=== PATIENT | female | born 1975 | race American Indian/Alaskan Native ===

== ENCOUNTER 2020-11-16 14:55 | Outpatient (REF) | payer MEDICAID, SELFPAY ==
[2020-11-16 16:30] LABS: Hematocrit 42.2 % (37-47); Hemoglobin 14.3 g/dl (12.0-16.0); Mean Corpuscular HGB Conc 33.9 g/dl (31.0-35.0); Mean Corpuscular Volume 91.3 fL (80-98); Mean Platelet Volume 11.2 fL (9.4-12.3); Platelet Count 201 X10*3/uL (160-400); Red Blood Count 4.62 X10*6/uL (4.20-5.50); Red Cell Distribution Width 11.3 % (11.0-16.0)
[2020-11-16 16:46] LABS: Estimated Average Glucose 246 mg/dL; Hemoglobin A1c % 10.2 %
[2020-11-16 16:47] LABS: Alanine Aminotransferase 32 U/L (0-31); Albumin Level 4.5 g/dL (3.5-5.0); Alkaline Phosphatase 70 U/L (39-117); Anion Gap 14 (12-20); Aspartate Amino Transferase 13 U/L (5-31); Bilirubin Total 0.8 mg/dL (0.0-1.0); Blood Urea Nitrogen 8 mg/dL (9-16); Carbon Dioxide 25 mmol/L (22-29); Chloride 104 mmol/L (96-108); Cholesterol 137 mg/dL; Estimated Glomerular Filt Rate > 60; Glucose Random 197 mg/dL (60-115); HDL Cholesterol 39 mg/dL; LDL Cholesterol Calculated 74 mg/dl; Potassium 3.8 mmol/L (3.3-5.1); Sodium 139 mmol/L (135-145); Total Protein 7.2 g/dL (6.5-8.0); Triglycerides 121 mg/dL
[2020-11-16 16:52] LABS: Creatinine Urine 104.02 mg/dL; Microalbum/Creatinine Ratio Ur 6.7 ug/mg cr
== END 2020-11-16 14:56 | disposition home or self-care (01) ==
LOC: HO.HMGCLDS 14:55
PROVIDERS: PCP Internal Medicine; Visit Provider Internal Medicine
DX: Z00.00 Encounter for general adult medical examination without abnormal findings (principal); E11.9 Type 2 diabetes mellitus without complications; F32.9 Major depressive disorder, single episode, unspecified
CPT/HCPCS: 36415; 80053; 80061; 82043; 83036; 85027

== ENCOUNTER 2021-01-23 10:20 | Outpatient (REF) | payer OTHER, SELFPAY ==
--- NOTE | ~2021-01-23 | MM_ITS ---
EXAMINATION: MM SCREENING DIGITAL BREAST TOMOSYNTHESIS, BILATERAL CLINICAL INFORMATION: Screening. Asymptomatic. The lifetime risk of breast cancer based on the Tyrer-Cuzick Model is 12.5%. COMPARISON: Mammography: October 18, 2015 TECHNIQUE: Digital breast tomosynthesis is performed in both the craniocaudal and mediolateral oblique views along with computer-aided detection (CAD). Synthesized 2D images are generated from the tomosynthesis. FINDINGS: There are scattered areas of fibroglandular density (ACR BI-RADS breast composition Category b). There are no significant masses, abnormal calcifications, or other abnormalities. There is some calcification seen within the right axillary lymph node which may be related to tattoo pigment. MM/MM tomosynthesis screening BI IMPRESSION: There are no significant changes from prior study. ASSESSMENT: BI-RADS 1: Negative RECOMMENDATION: Routine annual mammography screening. This patient's information was entered into a reminder system with a target due date for their next mammogram.
== END 2021-01-23 10:21 | disposition home or self-care (01) ==
LOC: HO.MAMMO 10:20
PROVIDERS: PCP Internal Medicine; Visit Provider Internal Medicine
DX: Z12.31 Encounter for screening mammogram for malignant neoplasm of breast (principal)
CPT/HCPCS: 77063; 77067

== ENCOUNTER → 2022-01-09 10:58 | Outpatient (BNVA) | payer SELFPAY | PROVIDERS: PCP Internal Medicine; Visit Provider Physician Assistant | DX: Z02.79 Encounter for issue of other medical certificate (principal) ==

== ENCOUNTER → 2022-01-14 16:45 | Outpatient (BNVA) | payer OTHER, SELFPAY | PROVIDERS: PCP Internal Medicine; Referring Provider Internal Medicine; Visit Provider Nurse Practitioner Family | DX: Z12.11 Encounter for screening for malignant neoplasm of colon (principal) | CPT/HCPCS: 99202 ==

== ENCOUNTER 2022-01-29 10:35 | Outpatient (REF) | payer OTHER, SELFPAY ==
--- NOTE | ~2022-01-29 | MM_ITS ---
EXAMINATION: MM SCREENING DIGITAL BREAST TOMOSYNTHESIS, BILATERAL CLINICAL INFORMATION: Screening. Asymptomatic. The lifetime risk of breast cancer based on the Tyrer-Cuzick Model is 13%. COMPARISON: Mammography: 01/23/2021; outside mammography 10/18/2015 ([facility]). TECHNIQUE: Digital breast tomosynthesis is performed in both the craniocaudal and mediolateral oblique views along with computer-aided detection (CAD). Synthesized 2D images are generated from the tomosynthesis. FINDINGS: There are scattered areas of fibroglandular density (ACR BI-RADS breast composition Category b). There are no significant masses, abnormal calcifications, or other abnormalities. Parenchymal pattern is similar to prior exams. The axilla and skin contours are unremarkable. No significant changes. MM/MM tomosynthesis screening BI IMPRESSION: No mammographic evidence of malignancy. ASSESSMENT: BI-RADS 1: Negative RECOMMENDATION: Routine annual mammography screening. This patient's information was entered into a reminder system with a target due date for their next mammogram.
== END 2022-01-29 10:36 | disposition home or self-care (01) ==
LOC: HO.MAMMO 10:35
PROVIDERS: PCP Internal Medicine; Visit Provider Internal Medicine
DX: Z12.31 Encounter for screening mammogram for malignant neoplasm of breast (principal)
CPT/HCPCS: 77063; 77067

== ENCOUNTER 2022-12-24 10:08 | Outpatient (REF) | payer OTHER, SELFPAY ==
[2022-12-24 11:36] LABS: MANUAL DIFF FLAG NO
[2022-12-24 11:49] LABS: Basophils Absolute Auto 0.1 X10*3/uL (0.0-0.2); Basophils Percent Auto 0.6 % (0-2); Eosinophils Absolute Auto 0.1 X10*3/uL (0.0-0.4); Hematocrit 41.5 % (37.0-47.0); Hemoglobin 14.1 g/dl (12.0-16.0); Imm Gran Abs Auto 0.03 X10*3/uL (0.00-0.03); Imm Gran Pct Auto 0.4 % (0.0-0.4); Lymphocytes Percent Auto 26.2 % (20-40); Mean Corpuscular Hemoglobin 30.5 pg (27.0-33.0); Mean Corpuscular Volume 89.8 fL (80.0-98.0); Mean Platelet Volume 11.4 fL (9.4-12.3); Monocytes Absolute Auto 0.3 X10*3/uL (0.1-1.2); Monocytes Percent Auto 3.8 % (2-11); Neutrophils Absolute Auto 5.3 x10*3/uL (2.0-8.3); Platelet Count 191 X10*3/uL (160-400); Red Blood Count 4.62 X10*6/uL (4.20-5.50); Red Cell Distribution Width 11.1 % (11.0-16.0); White Blood Count 7.7 X10*3/uL (4.8-10.8)
[2022-12-24 11:51] LABS: Estimated Average Glucose 324 mg/dL; Hemoglobin A1c % 12.9 %
[2022-12-24 12:31] LABS: Creatinine Urine 57.68 mg/dL; Microalbumin Urine < 5.0 mg/L
[2022-12-24 12:33] LABS: Alanine Aminotransferase 26 U/L (0-31); Albumin Level 4.2 g/dL (3.5-5.0); Alkaline Phosphatase 92 U/L (39-117); Anion Gap 14 (12-20); Aspartate Amino Transferase 19 U/L (5-31); Bilirubin Total 0.7 mg/dL (0.0-1.0); Blood Urea Nitrogen 11 mg/dL (9-16); Calcium 9.1 mg/dL (8.4-10.2); Carbon Dioxide 24 mmol/L (22-29); Chloride 101 mmol/L (96-108); Cholesterol 171 mg/dL; Estimated Glomerular Filt Rate 57; Glucose Fasting 429 mg/dL (60-99); HDL Cholesterol 48 mg/dL; LDL Cholesterol Calculated 110 mg/dl; Potassium 4.6 mmol/L (3.3-5.1); Sodium 134 mmol/L (135-145); Total Protein 6.6 g/dL (6.5-8.0); Triglycerides 66 mg/dL
== END 2022-12-24 10:09 | disposition home or self-care (01) ==
LOC: HO.HMGCLDS 10:08
PROVIDERS: PCP Internal Medicine; Visit Provider Internal Medicine
DX: E11.9 Type 2 diabetes mellitus without complications (principal)
CPT/HCPCS: 36415; 80053; 80061; 82043; 83036; 85025

== ENCOUNTER → 2023-01-02 10:16 | Outpatient (BNVA) | payer SELFPAY | PROVIDERS: PCP Internal Medicine; Visit Provider Physician Assistant Medical | DX: Z02.79 Encounter for issue of other medical certificate (principal) ==

== ENCOUNTER 2023-02-04 10:46 | Outpatient (REF) | payer OTHER, SELFPAY ==
--- NOTE | ~2023-02-04 | MM_ITS ---
EXAMINATION: MM SCREENING DIGITAL BREAST TOMOSYNTHESIS, BILATERAL CLINICAL INFORMATION: Screening. Asymptomatic. The lifetime risk of breast cancer based on the Tyrer-Cuzick Model is 12%. COMPARISON: Mammography: 01/29/2022, 01/23/2021; outside mammography 10/18/2015 ([facility]). TECHNIQUE: Digital breast tomosynthesis is performed in both the craniocaudal and mediolateral oblique views along with computer-aided detection (CAD). Synthesized 2D images are generated from the tomosynthesis. FINDINGS: There are scattered areas of fibroglandular density (ACR BI-RADS breast composition Category b). There are no significant masses, abnormal calcifications, or other abnormalities. Parenchymal pattern is similar to prior studies. Minor asymmetries are similar to prior studies. No developing density or architectural abnormality. The axilla and skin contours are unremarkable. No significant changes. MM/MM tomosynthesis screening BI IMPRESSION: No mammographic evidence of malignancy. ASSESSMENT: BI-RADS 2: Benign RECOMMENDATION: Routine annual mammography screening. This patient's information was entered into a reminder system with a target due date for their next mammogram.
== END 2023-02-04 10:47 | disposition home or self-care (01) ==
LOC: HO.MAMMO 10:46
PROVIDERS: Visit Provider Internal Medicine
DX: Z12.31 Encounter for screening mammogram for malignant neoplasm of breast (principal)
CPT/HCPCS: 77063; 77067

== ENCOUNTER 2023-04-23 08:47 | Outpatient (AMB) | payer OTHER, SELFPAY ==
[2023-04-23 08:49] VITALS: BP 96/62; PULSE 94; O2SAT 96; BMI 28.7
--- NOTE | 2023-04-23 08:49 | MHC.PC.OV ---
Vital Signs 04/23/23 08:49 Height 5 ft 10 in Weight 200 lb BMI 28.7 BP 96/62 Blood Pressure Location Rt brachial Position Sitting Pulse 94 Pulse Source Pulse Oximeter Pulse Oximetry (%) 96 Oxygen Delivery Method Room Air Intake Visit Reasons: 6 wk follow up DM Intake Note: Pt is here today for 6 weeks follow up visit on DM. Allergies cats, dogs, pollen Allergy (Unknown, Verified 04/23/23 08:51) unknown Medication List - Last Reconciled 04/23/23 by Kassandra Ruiz MD bisacodyl (Dulcolax (bisacodyl)) 10 mg (2 x 5 mg) PO ONCE 1 day blood sugar diagnostic (FreeStyle Lite Strips) test blood sugar twice per day blood-glucose meter (FreeStyle Lite Meter kit) As directed bupropion HCl 300 mg PO ONCE 30 days empagliflozin (Jardiance) 25 mg PO DAILY epinephrine (EpiPen 2-Alfred) 0.3 mg (0.3 mL) IM Q4H PRN flash glucose sensor (IP [employer] Bishop 14 Day Sensor kit) As directed fluconazole 150 mg PO Q3D 2 doses hydroxyzine HCl 25 mg PO BID lancets (FreeStyle Lancets) As directed metformin 1,000 mg (2 x 500 mg) PO BID polyethylene glycol 3350 (Miralax) 238 grams PO ONCE ProAir HFA 90 mcg/actuation (albuterol sulfate) 2 puffs inhalation Q4-6H PRN NS semaglutide (Ozempic) 0.25 mg (0.368 mL) subcut QWEEK Tobacco use date assessed: 04/23/23 Dental Screening Dental Screen Date: 04/23/23 Did you have a dental visit in the last 12 months?: Yes Did you have a dental problem in the last 6 months where you did not have access to dental care?: No Was dental information given to patient?: Patient has dentist HPI 6 wk follow up DM HPI Details Patient presents for follow-up of type 2 diabetes. She has been taking metformin Jardiance and Ozempic. Patient lost 10 lb since starting Ozempic. She has not been monitoring her blood glucose because Bishop Sensor was not covered by her insurance. Anxiety and depression are stable on medications. [facility] Medical History Annual physical exam Anxiety Depression FHx: colon cancer Mild intermittent asthma Night sweats Smoker TMJ syndrome Tobacco dependence Type 2 diabetes mellitus Urinary incontinence Surgical History No pertinent past surgical history Family History Maternal Grandmother Ovarian cancer Mother No problems noted. Father No problems noted. Social History Household Members Other:: single, tobacco 1 ppd, no children, mother moving to [place] Housing: Apartment Patient Tobacco Use Status: Current everyday Tobacco user Tobacco use type: Cigarette Cigarette Packs Per Day: 1 Cigarettes Per Day: 20.0 Years Smoked: 30 e-Cigarette/Vaping Use: Never Used Current occupational status: employed Cognitive needs: No Hearing needs: No Vision needs: Yes Questionnaire Thrive Questionnaire Date Thrive assessed: 01/01/23 NOEMY-7 AMB Questionnaire NOEMY-7 Date NOEMY - 7 assessed: 01/01/23 Source: Developed by Drs. Darien Cottrell, Ely Freeman, Jason Weller and colleagues, with an educational christine from [employer]. Review of Systems Const All systems reviewed & are unremarkable except as noted in HPI and below Reports no additional complaints Eyes Reports no additional complaints ENT Reports no additional complaints Card Reports no additional complaints Resp Reports no additional complaints GI Reports no additional complaints Reports no additional complaints Physical exam (Primary Care) Vital Signs: Last Vital Signs Pulse 94 04/23/23 08:49 BP 96/62 04/23/23 08:49 Pulse Ox 96 04/23/23 08:49 Oxygen Delivery Method Room Air 04/23/23 08:49 BMI result Body Mass Index 28.7 Tobacco/Smoking Status: Tobacco use Status Tobacco use date assessed 04/23/23 04/23/23 08:54 Patient Tobacco Use Status Current everyday Tobacco 04/23/23 08:51 Tobacco use type Cigarette 04/23/23 08:51 e-Cigarette/Vaping Use Never Used 04/23/23 08:51 Thrive Assessment: Date of Thrive Assessment Date Thrive assessed 01/01/23 04/23/23 08:51 Const General: no acute distress HENMT Head: Yes normal to inspection Ears: hearing grossly normal bilaterally Mouth: Normal oral and palatal mucosa present Neck Neck: Yes supple Resp Auscultation: clear to auscultation bilaterally Cardio Rhythm: regular rhythm Heart sounds: S1 normal heart sound present and S2 normal heart sound present Assessment and Plan Assessment & Plan (1) Type 2 diabetes mellitus: Code(s): E11.9 - Type 2 diabetes mellitus without complications Plan: Patient will return for fasting labs including A1c, she will increase Ozempic to 1 mg weekly and continue the rest of her medications. Patient will follow-up in 3 months with a fasting labs before (2) Anxiety: Comment: Patient will follow-up with psychiatric prescriber and counselor Code(s): F41.9 - Anxiety disorder, unspecified Plan: Continue current medications and follow-up with a counselor. Orders: Orders Comprehensive [place]. Panel Fast Today E11.9 - Type 2 diabetes mellitus without complications, F41.9 - Anxiety disorder, unspecified Hemoglobin A1c Today E11.9 - Type 2 diabetes mellitus without complications, F41.9 - Anxiety disorder, unspecified Lipid Panel Today E11.9 - Type 2 diabetes mellitus without complications, F41.9 - Anxiety disorder, unspecified TSH reflex Free T4 Today E11.9 - Type 2 diabetes mellitus without complications, F41.9 - Anxiety disorder, unspecified Microalbumin, Random (w Creat) Today E11.9 - Type 2 diabetes mellitus without complications, F41.9 - Anxiety disorder, unspecified Complete Blood Count Auto Diff Today E11.9 - Type 2 diabetes mellitus without complications, F41.9 - Anxiety disorder, unspecified Comprehensive [place]. Panel Fast 3 Months E11.9 - Type 2 diabetes mellitus without complications, Z00.00 - Encounter for general adult medical examination without abnormal findings Hemoglobin A1c 3 Months E11.9 - Type 2 diabetes mellitus without complications, Z00.00 - Encounter for general adult medical examination without abnormal findings Lipid Panel 3 Months E11.9 - Type 2 diabetes mellitus without complications, Z00.00 - Encounter for general adult medical examination without abnormal findings Medications: New semaglutide (Ozempic) 1 mg (0.75 mL) subcut QWEEK 9 mL 1RF Coding Level of Care Code Est Pt Level 4 (15137) Diagnoses Type 2 diabetes mellitus E11.9 Anxiety F41.9
== END 2023-04-23 09:44 | disposition home or self-care (01) ==
PROVIDERS: PCP Internal Medicine; Visit Provider Internal Medicine
DX: E11.9 Type 2 diabetes mellitus without complications (principal); F41.9 Anxiety disorder, unspecified
CPT/HCPCS: 99214

== ENCOUNTER → 2023-07-01 11:09 | Day surgery (SDC) | payer OTHER, SELFPAY ==
--- NOTE | 2023-06-30 13:28 | HO.ANESPROP2 ---
Documented by User: Sirisha Navas NP 06/30/23 13:28 HPI - Anesthesia Eval Consult details Narrative: 47yo F for Colonoscopy Ozempic last dose 06/19/23 PMFSH Active Problems Active Problems: All Active Problems (Updated 07/18/22 @ 15:14 by Kassandra Ruiz MD) Anxiety (Acute) Depression (Acute) FHx: colon cancer (Acute) Night sweats (Acute) Annual physical exam (Acute) Tobacco dependence (Acute) Type 2 diabetes mellitus (Acute) Past Medical History Medical History Annual physical exam Anxiety Depression FHx: colon cancer Mild intermittent asthma Night sweats Smoker TMJ syndrome Tobacco dependence Type 2 diabetes mellitus Urinary incontinence Family History Family History Maternal Grandmother Ovarian cancer Mother No problems noted. Father No problems noted. Surgical History Surgical History No pertinent past surgical history Social History Social History Household Members Other:: single, tobacco 1 ppd, no children, mother moving to [place] Housing: Apartment Patient Tobacco Use Status: Current everyday Tobacco user Tobacco use type: Cigarette Cigarette Packs Per Day: 1 Cigarettes Per Day: 20.0 Years Smoked: 30 Smoked in Last 30 Days: Yes e-Cigarette/Vaping Use: Never Used Date Education Initiated: 07/01/23 Use of substances other than those prescribed or required for medical reasons: No Are you DNR?: No Advance Directives: No Advance Directives Information Provided: Yes Current occupational status: employed Cognitive needs: No Hearing needs: No Vision needs: Yes Meds Allergies Allergy/AdvReac Type Severity Reaction Status Date / Time cats, dogs, pollen Allergy Unknown unknown Verified 04/23/23 08:51 Exam Exam Date and Time: June 30, [id number] Assessment and Plan Assessment Anesthesia Assessment: Chart Reviewed Documented by User: Dian Fong MD 07/01/23 11:50 PMFSH Past Medical History Medical History Annual physical exam Anxiety Depression FHx: colon cancer Mild intermittent asthma Night sweats Smoker TMJ syndrome Tobacco dependence Type 2 diabetes mellitus Urinary incontinence Family History Family History Maternal Grandmother Ovarian cancer Mother No problems noted. Father No problems noted. Family history of problems with anesthesia: No Surgical History Surgical History No pertinent past surgical history History of Problems with Anesthesia: No Social History Social History Household Members Other:: single, tobacco 1 ppd, no children, mother moving to [place] Housing: Apartment Patient Tobacco Use Status: Current everyday Tobacco user Tobacco use type: Cigarette Cigarette Packs Per Day: 1 Cigarettes Per Day: 20.0 Years Smoked: 30 Smoked in Last 30 Days: Yes e-Cigarette/Vaping Use: Never Used Date Education Initiated: 07/01/23 Use of substances other than those prescribed or required for medical reasons: No Are you DNR?: No Advance Directives: No Advance Directives Information Provided: Yes Current occupational status: employed Cognitive needs: No Hearing needs: No Vision needs: Yes Meds Allergies Allergy/AdvReac Type Severity Reaction Status Date / Time cats, dogs, pollen Allergy Unknown unknown Verified 04/23/23 08:51 Exam Airway Mallampati Class: II TM Dist: >3cm Neck ROM: Full Assessment and Plan Assessment Anesthesia Assessment: Anesthesia Plan Discussed Final Anesthetic Review Family History of Problems with Anesthesia: No History of Problems with Anesthesia: No NPO: Yes ASA Class: II Final Preanesthetic Review: No Changes in Pt Med Stat, Meds/Allgs Chart Reviewed, Consent Obtained/Reviewed and Anes Risks/Benef Reviewed Patient Risk: Intermediate Procedure Risk: Low Anesthetic Plan Anesthetic Plan: MAC: Disposition: Standard PACU
--- NOTE | ~2023-07-01 | XR_ITS ---
EXAMINATION: XR ABDOMEN KUB CLINICAL INDICATION: Constipation rule out obstruction. COMPARISON: CT abdomen and pelvis 04/12/2020. TECHNIQUE: AP view of the abdomen. FINDINGS: The bowel gas pattern is normal with no evidence of ileus or obstruction. No unusual soft tissue calcifications are noted. Mild degenerative changes in the lower lumbar spine. XR/XR KUB IMPRESSION: No evidence of bowel obstruction.
[2023-07-01 11:27] VITALS: BMI 27.3
[2023-07-01 11:30] VITALS: BP 127/78; PULSE 79; RESP 18; TEMP 36.2; O2SAT 97
[2023-07-01 11:35] LABS: Glucose, Whole Blood 186 mg/dL (60-115)
[2023-07-01] MEDS: Sodium Phosphate,Mono-Dibasic 133 ML ENEMA PR ×2 (11:35→11:45)
[2023-07-01 11:40] LABS: Urine Pregnancy NEGATIVE (NEGATIVE)
[2023-07-01 11:41] LABS: UPreg QC Valid YES
--- NOTE | 2023-07-01 11:46 | MHC.SHP ---
Pre-Procedural Eval Section A Date of Service: 07/01/23 Section B Chief Complaint: Encounter for screening for malignant neoplasm Present Medications: see Short Stay Collaborative assessment Medical History: Significant History Allergies: Allergies Allergy/AdvReac Type Severity Reaction Status Date / Time cats, dogs, pollen Allergy Unknown unknown Verified 04/23/23 08:51 Plan I have reviewed the history and physical and performed a pertinent physical examination on my patient. No changes have occurred unless specified. Time Spent With Patient Time: Total time managing care of this patient today ____ minutes.
--- NOTE | 2023-07-01 12:06 | PC.NURSE ---
pt with absolutely no bm s/p golytely prep, finished 100% c/o bloated, nausea. fleets prx1 with some leakage - small clear mucous, fleets pr x 2nd with absolutely no results. Dr. Briscoe notified, kub ordered. iv started #20 first stick
[2023-07-01] MEDS: Lactated Ringers 1,000 ML 100 ML IVCONT (12:09)
--- NOTE | 2023-07-01 12:16 | PC.NURSE ---
dr. willoughby at bedside. c/o constipation hx since ozempic but very good bm yesterday. advisor consultant and floor plan adjuster took pt for KUB for ? blockage at 1217.
--- NOTE | 2023-07-01 12:30 | PC.NURSE ---
pt returned from kub. facial flushing noted but states she fees better since receirving ivfluids. dr. willoughby said miralax x2 days and off ozempic x 1 month (2 weeks off currently.
--- NOTE | 2023-07-01 12:40 | PC.NURSE ---
procedure cancelled. kub full of stool, no blockage. iv out dsd, no oozing and discharged ambulatory asymptomaticv
--- NOTE | 2023-07-01 12:46 | PC.NURSE ---
ambulatory asmyptomatic, waiting in waiting room of short stay
[2023-09-16 08:37] VITALS: BMI 29.1
== END ==
PROVIDERS: Nurse Practitioner; PCP Internal Medicine; Visit Provider Internal Medicine Gastroenterology
DX: Z12.11 Encounter for screening for malignant neoplasm of colon (principal); Z53.9 Procedure and treatment not carried out, unspecified reason; Z80.0 Family history of malignant neoplasm of digestive organs; J45.20 Mild intermittent asthma, uncomplicated; E11.9 Type 2 diabetes mellitus without complications; F32.A Depression, unspecified; M26.609 Unspecified temporomandibular joint disorder, unspecified side; R61 Generalized hyperhidrosis; R32 Unspecified urinary incontinence; F17.210 Nicotine dependence, cigarettes, uncomplicated
CPT/HCPCS: 74018; 81025; 82947

== ENCOUNTER 2023-07-03 13:55 | Outpatient (AMB) | payer OTHER, SELFPAY ==
[2023-07-03 14:01] VITALS: BP 120/62; PULSE 84; O2SAT 97; BMI 27.8
--- NOTE | 2023-07-03 14:01 | MHC.PC.OV ---
Vital Signs 07/03/23 14:01 Height 5 ft 10 in Weight 194 lb BMI 27.8 BP 120/62 Blood Pressure Location Lt brachial Position Sitting Pulse 84 Pulse Source Pulse Oximeter Pulse Oximetry (%) 97 Oxygen Delivery Method Room Air Intake Visit Reasons: Sore throat for the past 5 days Intake Note: Pt is here today for a sick visit. Pt c/o sore throat for last 5 days. Pt states that she has no other symptoms. Allergies cats, dogs, pollen Allergy (Unknown, Verified 07/03/23 14:04) unknown Medication List - Last Reconciled 07/03/23 by Kassandra Ruiz MD bisacodyl (Dulcolax (bisacodyl)) 10 mg (2 x 5 mg) PO ONCE 1 day blood sugar diagnostic (FreeStyle Lite Strips) test blood sugar twice per day blood-glucose meter (FreeStyle Lite Meter kit) As directed bupropion HCl 300 mg PO ONCE 30 days empagliflozin (Jardiance) 25 mg PO DAILY epinephrine (EpiPen 2-Alfred) 0.3 mg (0.3 mL) IM Q4H PRN flash glucose sensor ([employer] Bishop 14 Day Sensor kit) As directed fluconazole 150 mg PO Q3D 2 doses hydroxyzine HCl 25 mg PO BID lancets (FreeStyle Lancets) As directed metformin 1,000 mg (2 x 500 mg) PO BID peg 3350-electrolytes 236-22.74-6.74 -5.86 gram 240 mL PO Q10M polyethylene glycol 3350 (Miralax) 238 grams PO ONCE ProAir HFA 90 mcg/actuation (albuterol sulfate) 2 puffs inhalation Q4-6H PRN NS semaglutide (Ozempic) 1 mg (0.75 mL) subcut QWEEK Tobacco use date assessed: 04/23/23 HPI Sore throat for the past 5 days HPI Details Pt presents complaining of sore throat and right ear discomfort for 5 days. Patient denies nasal congestion cough fever chills. She tested negative for COVID-19. Patient has been taking medications for type 2 diabetes but has not been monitoring her blood glucose. She travels a lot for her job [facility] Medical History Annual physical exam Anxiety Depression FHx: colon cancer Mild intermittent asthma Night sweats Smoker TMJ syndrome Tobacco dependence Type 2 diabetes mellitus Urinary incontinence Surgical History No pertinent past surgical history Family History Maternal Grandmother Ovarian cancer Mother No problems noted. Father No problems noted. Social History Household Members Other:: single, tobacco 1 ppd, no children, mother moving to [place] Housing: Apartment Patient Tobacco Use Status: Current everyday Tobacco user Tobacco use type: Cigarette Cigarette Packs Per Day: 1 Cigarettes Per Day: 20.0 Years Smoked: 30 Packs Per Year: 30 Packs per year/per ci.00 e-Cigarette/Vaping Use: Never Used Current occupational status: employed Cognitive needs: No Hearing needs: No Vision needs: Yes Questionnaire Thrive Questionnaire Date Thrive assessed: 01/01/23 NOEMY-7 AMB Questionnaire NOEMY-7 Date NOEMY - 7 assessed: 01/01/23 Source: Developed by Drs. Darien Cottrell, Ely Freeman, Jason Weller and colleagues, with an educational christine from [employer]. Review of Systems Const All systems reviewed & are unremarkable except as noted in HPI and below Reports no additional complaints Eyes Reports no additional complaints ENT Reports no additional complaints Card Reports no additional complaints Resp Reports no additional complaints GI Reports no additional complaints Physical exam (Primary Care) Vital Signs: Last Vital Signs Pulse 84 07/03/23 14:01 BP 120/62 07/03/23 14:01 Pulse Ox 97 07/03/23 14:01 Oxygen Delivery Method Room Air 07/03/23 14:01 BMI result Body Mass Index 27.8 Tobacco/Smoking Status: Tobacco use Status Tobacco use date assessed 04/23/23 07/03/23 14:06 Patient Tobacco Use Status Current everyday Tobacco 07/03/23 14:06 Tobacco use type Cigarette 07/03/23 14:06 e-Cigarette/Vaping Use Never Used 07/03/23 14:06 Thrive Assessment: Date of Thrive Assessment Date Thrive assessed 01/01/23 07/03/23 14:06 Const General: no acute distress HENMT Head: Yes normal to inspection Ears: TM's normal bilaterally General nose exam: Normal nasal mucous membranes and turbinates present Face and sinus: Yes normal facial exam and No sinus tenderness Mouth: Normal oral and palatal mucosa present Throat: Yes posterior oropharynx abnormal (Erythema) and Yes postnasal drainage Eyes General: appearance normal, both eyes and all related structures Neck Neck: Yes no lymphadenopathy and Yes supple Resp Effort & Inspection: normal respiratory effort Auscultation: clear to auscultation bilaterally Cardio Rhythm: regular rhythm Heart sounds: S1 normal heart sound present and S2 normal heart sound present Results AMB Rapid Strep AMB Rapid Strep Negative Last Edit by JEANNIE Carrion on 07/03/23 14:15 Results Reviewed Results Reviewed: Laboratory Last Values Strep Scn Rapid Clinic Negative 07/03/23 14:09 Assessment and Plan Assessment & Plan (1) Sore throat: Code(s): J02.9 - Acute pharyngitis, unspecified Plan: For viral pharyngitis supportive care discussed with the patient (2) Type 2 diabetes mellitus: Code(s): E11.9 - Type 2 diabetes mellitus without complications Plan: Continue current medications and return for fasting blood work and follow-up Orders: Orders AMB Rapid Strep Screen Today Z13.9 - Encounter for screening, unspecified Medications: Changed From bupropion HCl 300 mg PO ONCE 30 days 30 tabs 6RF To bupropion HCl 300 mg PO ONCE 90 tabs 3RF Refilled empagliflozin (Jardiance) 25 mg PO DAILY 90 tabs 0RF metformin 1,000 mg (2 x 500 mg) PO BID 360 tabs 0RF Discontinued semaglutide (Ozempic) for 4 weeks, than 0.5 mg weekly Discontinued Reason: Doctor's Order 0.25 mg (0.368 mL) subcut QWEEK 3 mL 4RF Coding Level of Care Code Est Pt Level 3 (03629) Diagnoses Sore throat J02.9 Type 2 diabetes mellitus E11.9
== END 2023-07-03 15:08 | disposition home or self-care (01) ==
PROVIDERS: PCP Internal Medicine; Visit Provider Internal Medicine
DX: J02.9 Acute pharyngitis, unspecified (principal); E11.9 Type 2 diabetes mellitus without complications
CPT/HCPCS: 87880; 99213

== ENCOUNTER 2023-10-17 08:02 | Outpatient (AMB) | payer OTHER, SELFPAY ==
[2023-10-17 08:13] VITALS: BP 126/74; PULSE 74; TEMP 36.7; O2SAT 98; BMI 29.3
--- NOTE | 2023-10-17 08:13 | MHC.OFFWIV ---
Intake Vital Signs 10/17/23 08:13 Height 5 ft 10 in Weight 204 lb 8 oz BMI 29.3 BP 126/74 Blood Pressure Location Rt brachial Position Sitting Pulse 74 Pulse Source Pulse Oximeter Temp 98.0 F Temp Source Temporal Artery Scan Pulse Oximetry (%) 98 Intake Visit Reasons: EP LFT neck pain radiates down to hand Intake Note: pt is here for c.o left neck pain raditates down to arm to hand, patient suspects she has a pinched nerve for 2 weeks Patient Tobacco Use Status: Current everyday Tobacco user Allergies cats, dogs, pollen Allergy (Unknown, Verified 10/17/23 08:16) unknown Do you need a note to return to daycare/school/sports/work: Yes HPI HPI Comments History of Present Illness Details 48 y/o female presents to walk in clinic with c/o left sided neck pain that radiates down to hand x 2 weeks. Denies any injuries or trauma. [facility] Medical History Annual physical exam Anxiety Depression FHx: colon cancer Mild intermittent asthma Night sweats Smoker TMJ syndrome Tobacco dependence Type 2 diabetes mellitus Urinary incontinence Surgical History No pertinent past surgical history Family History Maternal Grandmother Ovarian cancer Mother No problems noted. Father No problems noted. Social History Household Members Other:: single, tobacco 1 ppd, no children, mother moving to [place] Housing: Apartment Patient Tobacco Use Status: Current everyday Tobacco user Tobacco use type: Cigarette Cigarette Packs Per Day: 1 Cigarettes Per Day: 20.0 Years Smoked: 30 e-Cigarette/Vaping Use: Never Used Current occupational status: employed Cognitive needs: No Hearing needs: No Vision needs: Yes Review of Systems Const All systems reviewed & are unremarkable except as noted in HPI and below Physical Exam Vital Signs: Last Vital Signs Temp 98.0 F 10/17/23 08:13 Pulse 74 10/17/23 08:13 BP 126/74 10/17/23 08:13 Pulse Ox 98 10/17/23 08:13 BMI result Body Mass Index 29.3 Const Orientation/consciousness: patient oriented x3 Neuro General: patient oriented x3, gait normal, Normal light touch and pain sensation and CN's II-XI intact bilaterally Motor exam (neuro): 5/5 motor strength present throughout Extrem General: Yes normal to inspection Right upper extremity: shoulder/upper arm Details: normal to inspection and normal ROM; no tenderness and no swelling Left upper extremity: shoulder/upper arm Details: tenderness Location: of the proximal humerus, over the biceps tendon and over the deltoid bursa and abnormal ROM (due to pain); no swelling Assessment & Plan Assessment & Plan (1) Cervicalgia: Code(s): M54.2 - Cervicalgia Plan: - Heat pad - Ibuprofen -Rest the joint - Advise MRI if pain persists - Prob Pinched Nerve vs strain Medications: New cyclobenzaprine 10 mg PO BEDTIME 14 tabs 0RF M54.2 - Cervicalgia ibuprofen 800 mg PO Q8H 60 tabs 0RF NECK PAIN M54.2 - Cervicalgia Coding Level of Care Code Est Pt Level 2 (89003) Diagnoses Cervicalgia M54.2 Time Spent (min) 10
== END 2023-10-17 08:49 | disposition home or self-care (01) ==
PROVIDERS: PCP Internal Medicine; Visit Provider Nurse Practitioner Family
DX: M54.2 Cervicalgia (principal)
CPT/HCPCS: 99213

== ENCOUNTER → 2023-12-18 09:36 | Outpatient (BNVA) | payer SELFPAY | PROVIDERS: PCP Internal Medicine; Visit Provider Physician Assistant | DX: Z02.79 Encounter for issue of other medical certificate (principal) ==

== ENCOUNTER 2023-12-31 08:52 | Outpatient (REF) | payer OTHER, SELFPAY ==
[2023-12-31 10:20] LABS: MANUAL DIFF FLAG NO
[2023-12-31 10:36] LABS: Basophils Absolute Auto 0.1 X10*3/uL (0.0-0.2); Basophils Percent Auto 0.7 % (0-2); Eosinophils Absolute Auto 0.1 X10*3/uL (0.0-0.4); Eosinophils Percent Auto 0.9 % (0-4); Hematocrit 44.7 % (37.0-47.0); Hemoglobin 15.3 g/dl (12.0-16.0); Imm Gran Abs Auto 0.02 X10*3/uL (0.00-0.03); Imm Gran Pct Auto 0.3 % (0.0-0.4); Lymphocytes Absolute Auto 2.2 X10*3/uL (1.2-4.9); Lymphocytes Percent Auto 29.4 % (20-40); Mean Corpuscular HGB Conc 34.2 g/dl (31.0-35.0); Mean Corpuscular Volume 90.7 fL (80.0-98.0); Mean Platelet Volume 11.3 fL (9.4-12.3); Monocytes Absolute Auto 0.4 X10*3/uL (0.1-1.2); Monocytes Percent Auto 4.9 % (2-11); Neutrophils Absolute Auto 4.7 x10*3/uL (2.0-8.3); Neutrophils Percent Auto 63.8 % (45-73); Platelet Count 213 X10*3/uL (160-400); Red Blood Count 4.93 X10*6/uL (4.20-5.50); Red Cell Distribution Width 11.8 % (11.0-16.0); White Blood Count 7.4 X10*3/uL (4.8-10.8)
[2023-12-31 10:37] LABS: Estimated Average Glucose 217 mg/dL; Hemoglobin A1c % 9.2 % (<6.0)
[2023-12-31 10:55] LABS: Creatinine Urine 51.02 mg/dL; Microalbumin Urine < 5.0 mg/L
[2023-12-31 11:27] LABS: Alanine Aminotransferase 20 U/L (0-31); Albumin Level 4.3 g/dL (3.5-5.0); Alkaline Phosphatase 80 U/L (39-117); Anion Gap 13 (12-20); Aspartate Amino Transferase 13 U/L (5-31); Bilirubin Total 0.7 mg/dL (0.0-1.0); Blood Urea Nitrogen 14 mg/dL (9-16); Calcium 9.5 mg/dL (8.4-10.2); Carbon Dioxide 23 mmol/L (22-29); Chloride 107 mmol/L (96-108); Cholesterol 153 mg/dL (<200); Estimated Glomerular Filt Rate > 60; Glucose Fasting 259 mg/dL (60-99); HDL Cholesterol 44 mg/dL (>40); LDL Cholesterol Calculated 95 mg/dL (<100); Potassium 4.4 mmol/L (3.3-5.1); Sodium 139 mmol/L (135-145); Total Protein 7.4 g/dL (6.5-8.0); Triglycerides 73 mg/dL (<150)
== END 2023-12-31 08:53 | disposition home or self-care (01) ==
LOC: HO.HMGCLDS 08:52
PROVIDERS: PCP Internal Medicine; Visit Provider Internal Medicine
DX: Z00.00 Encounter for general adult medical examination without abnormal findings (principal); E11.9 Type 2 diabetes mellitus without complications; F41.9 Anxiety disorder, unspecified
CPT/HCPCS: 36415; 80053; 80061; 82570; 83036; 85025

== ENCOUNTER 2024-01-07 14:16 | Outpatient (AMB) | payer OTHER, SELFPAY ==
[2024-01-07 14:19] VITALS: BP 122/60; PULSE 99; O2SAT 94; BMI 28.7
--- NOTE | 2024-01-07 14:19 | A.OFFPC_ITS ---
Vital Signs 01/07/24 14:19 Height 5 ft 10 in Weight 200 lb BMI 28.7 BP 122/60 Blood Pressure Location Lt brachial Position Sitting Pulse 99 Pulse Source Pulse Oximeter Pulse Oximetry (%) 94 Oxygen Delivery Method Room Air Intake Visit Reasons: diabetes followup Intake Note: Pt is here today f/u DM Allergies cats, dogs, pollen Allergy (Unknown, Verified 01/07/24 14:23) unknown Medication List - Last Reconciled 01/07/24 by Kassandra Ruiz MD blood sugar diagnostic (FreeStyle Lite Strips) test blood sugar twice per day blood-glucose meter (FreeStyle Lite Meter kit) As directed bupropion HCl XL 300 mg PO ONCE empagliflozin (Jardiance) 25 mg PO DAILY epinephrine (EpiPen 2-Alfred) 0.3 mg (0.3 mL) IM Q4H PRN flash glucose sensor (FreeStyle Bishop 14 Day Sensor kit) As directed ibuprofen 800 mg PO Q8H lancets (FreeStyle Lancets) As directed metformin 1,000 mg (2 x 500 mg) PO BID Ozempic (semaglutide) 2 mg (0.75 mL) subcut QWEEK NS ProAir HFA 90 mcg/actuation (albuterol sulfate) 2 puffs inhalation Q4-6H PRN NS Tobacco use date assessed: 01/07/24 Dental Screening Dental Screen Date: 01/07/24 Did you have a dental visit in the last 12 months?: Yes Did you have a dental problem in the last 6 months where you did not have access to dental care?: Yes Was dental information given to patient?: Patient has dentist HPI diabetes followup HPI Details Pt presents for f/u DM 2. She has been compliant taking medications regularly but has not been checking her blood glucose. Pt c/o hot flashes, insomnia on and off for a few months. 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 [facility], [facility] Medical History (Updated 01/07/24 @ 15:20 by Kassandra Ruiz MD) Smoker FHx: colon cancer Night sweats Annual physical exam Tobacco dependence Urinary incontinence TMJ syndrome Type 2 diabetes mellitus Mild intermittent asthma Anxiety Depression Surgical History No pertinent past surgical history Family History Maternal Grandmother Ovarian cancer Mother No problems noted. Father No problems noted. Social History Household Members Other:: single, tobacco 1 ppd, no children, mother moving to [place] Housing: Apartment Patient Tobacco Use Status: Current everyday Tobacco user Tobacco use type: Cigarette Cigarette Packs Per Day: 1 Cigarettes Per Day: 20.0 Years Smoked: 30 e-Cigarette/Vaping Use: Never Used Current occupational status: employed Cognitive needs: No Hearing needs: No Vision needs: Yes Questionnaire PHQ-9 Over the last 2 weeks, how often have you been bothered by any of the following problems? 1. Little interest or pleasure in doing things: not at all 2. Feeling down, depressed, or hopeless: not at all 3. Trouble falling or staying asleep, or sleeping too much: not at all 4. Feeling tired or having little energy: not at all 5. Poor appetite or overeating: not at all 6. Feeling bad about yourself - or that you are a failure or have let yourself or your family down: not at all 7. Trouble concentrating on things, such as reading the newspaper or watching television: not at all 8. Moving or speaking so slowly that other people could have noticed. Or the opposite - being so fidgety or restless that you have been moving around a lot more than usual: not at all 9. Thoughts that you would be better off or of hurting yourself in some way: not at all Total score: 0 Depression Screening Interpretation: Negative Depression Screening Done: Yes 52687 - PHQ-9 Billing: Yes Source: Developed by Drs. Darien Cottrell, Ely Freeman, Jason Weller and colleagues, with an educational christine from [employer]. Thrive Questionnaire Date Thrive assessed: 01/07/24 I am a: Patient What is your living situation today?: I have a steady place to live Within the past 12 months, did the food you bought not last and you didn't have the money to get more?: Never true Within the past 12 months, did you worry whether your food would run out before you got money to buy more?: Never true Do you have trouble paying for medicines?: No Do you have trouble getting transportation to medical appointments?: No Do you have trouble paying your heating and electricity bill?: No Do you have trouble taking care of your child, family member or friend?: No Do you have trouble with day-to-day activities such as bathing, preparing meals, shopping, managing finances, etc.?: No Are you currently unemployed and looking for a job?: No Are you interested in more education?: No THRIVE Score: 0 AUDIT C Alcohol Use Questionnaire (AUDIT-C) 1. How often do you have a drink containing alcohol?: Never Total Score: 0 NOEMY-7 AMB Questionnaire NOEMY-7 Date NOEMY - 7 assessed: 01/07/24 Feeling nervous, anxious, or on edge: 0 = Not at all Not being able to stop or control worryin = Not at all Worrying too much about different things: 0 = Not at all Trouble relaxin = Not at all Being so restless that it is hard to sit still: 0 = Not at all Becoming easily annoyed or irritable: 0 = Not at all Feeling afraid as if something awful might happen: 0 = Not at all Total NOEMY-7 score (0-4 normal; 5-9 mild; 10-14 moderate; 15-21 severe): 0 Source: Developed by Drs. Darien Cottrell, Ely Freeman, Jason Weller and colleagues, with an educational christine from [employer]. Review of Systems Const All systems reviewed & are unremarkable except as noted in HPI and below Eyes Reports no additional complaints ENT Reports no additional complaints Card Reports no additional complaints Resp Reports no additional complaints GI Reports no additional complaints Reports no additional complaints Physical exam (Primary Care) Vital Signs: Last Vital Signs Pulse 99 01/07/24 14:19 BP 122/60 01/07/24 14:19 Pulse Ox 94 01/07/24 14:19 Oxygen Delivery Method Room Air 01/07/24 14:19 BMI result Body Mass Index 28.7 Tobacco/Smoking Status: Tobacco use Status Tobacco use date assessed 01/07/24 01/07/24 14:27 Patient Tobacco Use Status Current everyday Tobacco 01/07/24 14:20 Tobacco use type Cigarette 01/07/24 14:20 e-Cigarette/Vaping Use Never Used 04/24/24 14:20 PHQ-9: PHQ-9 Score PHQ-9: Total score 0 01/07/24 14:27 Depression Screening Interpretation: Negative Thrive Assessment: Date of Thrive Assessment Date Thrive assessed 01/07/24 01/07/24 14:27 Const General: no acute distress HENMT Head: Yes normal to inspection Ears: hearing grossly normal bilaterally General nose exam: Normal external nose present Face and sinus: Yes normal facial exam Mouth: Normal oral and palatal mucosa present Throat: Yes posterior oropharynx normal Eyes General: appearance normal, both eyes and all related structures Neck Neck: Yes supple Resp Effort & Inspection: normal respiratory effort Auscultation: clear to auscultation bilaterally Cardio Rhythm: regular rhythm Heart sounds: S1 normal heart sound present and S2 normal heart sound present Assessment and Plan Assessment & Plan (1) Type 2 diabetes mellitus: Code(s): E11.9 - Type 2 diabetes mellitus without complications Plan: A1c is down to 9.2 from 12.3. ADA diet increase physical activity discussed with the patient she will continue metformin Jardiance and increase Ozempic to 2 mg weekly. Follow-up in 3 months with a fasting labs before (2) Tobacco dependence: Comment: / PPD x 15 yrs Code(s): F17.200 - Nicotine dependence, unspecified, uncomplicated Plan: Tobacco quitting discussed with the patient (3) Anxiety: Comment: Patient will follow-up with psychiatric prescriber and counselor Code(s): F41.9 - Anxiety disorder, unspecified Plan: Continue bupropion Orders: Orders Hemoglobin A1c 3 Months E11.9 - Type 2 diabetes mellitus without complications Comprehensive [place]. Panel Fast 3 Months E11.9 - Type 2 diabetes mellitus without complications Microalbumin, Random (w Creat) 3 Months E11.9 - Type 2 diabetes mellitus without complications Medications: New blood-glucose sensor (Dexcom G7 Sensor device) As directed 2 ea 3RF Ozempic (semaglutide) 2 mg (0.75 mL) subcut QWEEK 9 mL 3RF NS Changed From bupropion HCl XL 300 mg PO ONCE 90 tabs 3RF To bupropion HCl XL 300 mg PO QAM 90 tabs 3RF Discontinued semaglutide (Ozempic) Discontinued Reason: Doctor's Order 1 mg (0.75 mL) subcut QWEEK 9 mL 0RF Coding Level of Care Code Est Pt Level 4 (67403) Diagnoses Type 2 diabetes mellitus E11.9 Tobacco dependence F17.200 Anxiety F41.9
== END 2024-01-07 15:15 | disposition home or self-care (01) ==
PROVIDERS: PCP Internal Medicine; Visit Provider Internal Medicine
DX: E11.9 Type 2 diabetes mellitus without complications (principal); F17.210 Nicotine dependence, cigarettes, uncomplicated; F41.9 Anxiety disorder, unspecified
CPT/HCPCS: 99214

== ENCOUNTER → 2024-03-02 10:00 | Outpatient (BNV) | payer OTHER, SELFPAY | PROVIDERS: PCP Internal Medicine; Visit Provider Radiology Diagnostic Radiology | DX: Z12.31 Encounter for screening mammogram for malignant neoplasm of breast (principal) | CPT/HCPCS: 77063; 77067 ==

== ENCOUNTER 2024-03-02 10:02 | Outpatient (REF) | payer OTHER, SELFPAY | END 2024-03-02 10:03 | disposition home or self-care (01) | LOC: HO.MAMMO 10:02 | PROVIDERS: PCP Internal Medicine; Visit Provider Internal Medicine | DX: Z12.31 Encounter for screening mammogram for malignant neoplasm of breast (principal) | CPT/HCPCS: 77063; 77067 ==

== ENCOUNTER 2024-03-05 11:23 | Day surgery (SDC) | payer OTHER, SELFPAY ==
--- NOTE | 2024-03-03 11:50 | HO.ANESPROP2 ---
Documented by User: Sirisha Navas NP 03/03/24 11:51 HPI - Anesthesia Eval Consult details Narrative: 48yo F for Colonoscopy Anesthesia Pre-Procedure Meds Is the patient on any of the following meds?: GLP1/DPP4 and SGLT2 Inhib PMFSH Active Problems Active Problems: All Active Problems Sore throat (Acute) Anxiety (Acute) Depression (Acute) FHx: colon cancer (Acute) Night sweats (Acute) Annual physical exam (Acute) Tobacco dependence (Acute) Type 2 diabetes mellitus (Acute) Past Medical History Medical History (Updated 01/07/24 @ 15:20 by Kassandra Ruiz MD) Smoker FHx: colon cancer Night sweats Annual physical exam Tobacco dependence Urinary incontinence TMJ syndrome Type 2 diabetes mellitus Mild intermittent asthma Anxiety Depression Family History Family History Maternal Grandmother Ovarian cancer Mother No problems noted. Father No problems noted. Family history of problems with anesthesia: No Surgical History Surgical History No pertinent past surgical history History of Problems with Anesthesia: No Social History Social History Household Members Other:: single, tobacco 1 ppd, no children, mother moving to [place] Housing: Apartment Patient Tobacco Use Status: Current everyday Tobacco user Tobacco use type: Cigarette Cigarette Packs Per Day: 1 Cigarettes Per Day: 20.0 Years Smoked: 30 e-Cigarette/Vaping Use: Never Used Advance Directives: No Advance Directives Information Provided: Yes Current occupational status: employed Cognitive needs: No Hearing needs: No Vision needs: Yes Meds Allergies Allergy/AdvReac Type Severity Reaction Status Date / Time cats, dogs, pollen Allergy Unknown unknown Verified 01/07/24 14:23 Exam Pertinent Lab Results Pertinent Lab Results: Laboratory Tests 12/31/23 09:25 WBC 7.4 Hgb 15.3 Hct 44.7 Plt Count 213 Sodium 139 Potassium 4.4 Chloride 107 Carbon Dioxide 23 BUN 14 Creatinine 0.85 Assessment and Plan Assessment Anesthesia Assessment: Chart Reviewed Final Anesthetic Review Family History of Problems with Anesthesia: No History of Problems with Anesthesia: No Documented by User: Briseida Bowden MD 03/05/24 13:46 PMFSH Past Medical History Medical History (Updated 01/07/24 @ 15:20 by Kassandra Ruiz MD) Smoker FHx: colon cancer Night sweats Annual physical exam Tobacco dependence Urinary incontinence TMJ syndrome Type 2 diabetes mellitus Mild intermittent asthma Anxiety Depression Family History Family History Maternal Grandmother Ovarian cancer Mother No problems noted. Father No problems noted. Surgical History Surgical History No pertinent past surgical history Social History Social History Household Members Other:: single, tobacco 1 ppd, no children, mother moving to [place] Housing: Apartment Patient Tobacco Use Status: Current everyday Tobacco user Tobacco use type: Cigarette Cigarette Packs Per Day: 1 Cigarettes Per Day: 20.0 Years Smoked: 30 e-Cigarette/Vaping Use: Never Used Advance Directives: No Advance Directives Information Provided: Yes Current occupational status: employed Cognitive needs: No Hearing needs: No Vision needs: Yes Meds Allergies Allergy/AdvReac Type Severity Reaction Status Date / Time cats, dogs, pollen Allergy Unknown unknown Verified 01/07/24 14:23 Exam Airway Mallampati Class: II TM Dist: >3cm Neck ROM: Full Denture: Upper Partial: Lower Heart: rrr Lungs: cta Assessment and Plan Assessment Anesthesia Assessment: Anesthesia Plan Discussed Final Anesthetic Review NPO: Yes ASA Class: III Final Preanesthetic Review: No Changes in Pt Med Stat, Meds/Allgs Chart Reviewed and Consent Obtained/Reviewed Patient Risk: Low Procedure Risk: Low Anesthetic Plan Anesthetic Plan: MAC: Disposition: Standard PACU
[2024-03-05 12:59] VITALS: BMI 28.2
[2024-03-05 13:00] VITALS: BP 125/71; PULSE 78; RESP 20; TEMP 36.6; O2SAT 100
[2024-03-05 13:11] LABS: Glucose, Whole Blood 256 mg/dL (60-115)
[2024-03-05 13:11] LABS: Urine Pregnancy NEGATIVE (NEGATIVE)
[2024-03-05 13:13] LABS: UPreg QC Valid YES
--- NOTE | 2024-03-05 13:43 | MHC.SHP ---
Pre-Procedural Eval Section A - 24 Hr Update-Section A only Date of Service: 03/05/24 The patient is an INPATIENT: No The patient has been examined within 24 hours of the surgical procedure. The History & Physical has been completed within 30 days and I have reviewed it.: No Section B - Complete if H&P > 30 days Chief Complaint: screening Relevant Family History (Specify if Yes): No Relevant Social History: Tobacco Use Present Medications: see Short Stay Collaborative assessment Medical History: Significant History (Anxiety Depression FHx: colon cancer Mild intermittent asthma Night sweats TMJ syndrome Tobacco dependence Type 2 diabetes mellitus Urinary incontinence) History of Previous Operations: No relevant previous surgery Allergies: Allergies Allergy/AdvReac Type Severity Reaction Status Date / Time cats, dogs, pollen Allergy Unknown unknown Verified 01/07/24 14:23 Review of Systems Sugical H&P ROS: Negative: Constitution, Cardiovascular, Respiratory and Gastrointestinal Exam Surgical H&P Exam: Normal: Heart, Normal: Lungs, Normal: Extremities and Normal: Abdomen Plan Diagnosis/Plan: Unchanged I have reviewed the history and physical and performed a pertinent physical examination on my patient. No changes have occurred unless specified. Time Spent With Patient Time: Total time managing care of this patient today ____ minutes.
--- NOTE | 2024-03-05 15:42 | P.OPN-COLO_ITS ---
Colonoscopy Operative Note Operative Note Date of Service: 03/05/24 Narrative: COLONOSCOPY TILL CECUM WITH BIOPSIES, SNARE POLYPECTOMY, SUBMUCOSAL INJECTION AND HEMOCLIP PLACEMENT Pre-op diagnosis: Surveillance for colon polyps. Post-op diagnosis:? Colon polyps, Diverticulosis Endoscopist:? Rodolfo France MD Anesthesia:?MAC Consent: Indications for the procedure and potential complications of bleeding, perforation, reaction to medications and missed diagnosis were discussed with the patient and informed consent was obtained. Instrument: Olympus CF H 190 L variable stiffness adult colonoscope Monitoring: Vital signs and clinical assessment, intermittent blood pressure monitoring, continuous EKG monitoring, Pulse oximetry and Carbon Dioxide monitoring were done throughout the procedure. Please see anesthesia flowsheet. Colon withdrawl time was 35 minutes. Procedure: The patient was placed in the left lateral decubitis position and pre-procedure medications were administered. After a digital rectal examination of the ano-rectum, the video colonoscope was inserted into the rectum and advanced through the colon to the cecum. The colonoscope was slowly withdrawn in a retrograde panoramic fashion and the colon mucosa was carefully examined including a retroflexed view of the rectum. Findings and interventions are described below. Procedure Difficulty: Colon was long and there was some loop formation Findings: Terminal Ileum: Not evaluated Cecum: Normal Ascending Colon: A 2 x 2 cms flat polyp in the proximal AC at 75 cms. Polyp was raised with 5 cc of Eleview and remooved with a hot snare. Polypectomy site was closed with 2 hemoclips and marked by Keesha ink. A 2nd 2 x 2 cms flat polyp at 70 cms. Polyp was raised with 2 cc of Eleview and removed with a hot snare and marked by Keesha ink. Transverse Colon: Normal Descending Colon: Normal Sigmoid Colon: Moderate diverticulosis Rectum: A 3-4 mm sessile polyp - removed with a cold biopsy. Ano-rectum: Normal Colon preparation: Good after some irrigation. Halfway Bowel Preparation Scale Right colon; 2 Transverse colon: 2 Left colon; 2 (0 = Unprepared colon segment with mucosa not seen due to solid stool that cannot be cleared. 1 = Portion of mucosa of the colon segment seen, but other areas of the colon segment not well seen due to staining, residual stool and/or opaque liquid. 2 = Minor amount of residual staining, small fragments of stool and/or opaque liquid, but mucosa of colon segment seen well. 3 = Entire mucosa of colon segment seen well with no residual staining, small fragments of stool or opaque liquid) Impression and Post Procedure Diagnosis: Colonoscopy Findings: Two medium sized and one small polyps were removed Moderate diverticulosis seen in the sigmoid colon Plan: I will send a letter with biopsy results. Repeat Colonoscopy in 6 to 12 months if polyps are adenomatous and 5 years if polyps are hyperplastic. Above findings were reviewed with the patient and relevant handouts were given and the discharge area. BIOPSIES SHOWED: A. Colon, ascending, polypectomies: Fragments of sessile serrated lesions/polyps; negative for cytologic dysplasia. B. Rectum, polypectomies: Hyperplastic mucosal polyps Letter sent advising repeat colonoscopy in 1 year.
[2024-03-05 15:47] VITALS: BP 123/68; PULSE 75; RESP 16; TEMP 36.1; O2SAT 100
[2024-03-05 16:02] VITALS: BP 134/71; PULSE 72; RESP 14; TEMP 36.1; O2SAT 100
== END 2024-03-05 16:30 | disposition home or self-care (01) ==
PROVIDERS: Nurse Practitioner; PCP Internal Medicine; Visit Provider Internal Medicine Gastroenterology
PROC: 0DJD8ZZ Inspection of Lower Intestinal Tract, Via Natural or Artificial Opening Endoscopic (ICD-10-PCS; CPT 45378; principal; 2024-03-05 13:40)
DX: Z12.11 Encounter for screening for malignant neoplasm of colon (principal); Z86.010 Personal history of colon polyps; D12.2 Benign neoplasm of ascending colon; K62.1 Rectal polyp; K57.30 Diverticulosis of large intestine without perforation or abscess without bleeding; E11.9 Type 2 diabetes mellitus without complications; J45.20 Mild intermittent asthma, uncomplicated; F32.A Depression, unspecified; F41.9 Anxiety disorder, unspecified; F17.210 Nicotine dependence, cigarettes, uncomplicated
CPT/HCPCS: 45385; 45380; 45381; 81025; 82947; 88305; J2704

== ENCOUNTER → 2024-03-05 11:23 | Outpatient (BNV) | payer OTHER, SELFPAY | PROVIDERS: PCP Internal Medicine; Visit Provider Internal Medicine Gastroenterology | DX: Z12.11 Encounter for screening for malignant neoplasm of colon (principal); Z86.010 Personal history of colon polyps; K63.5 Polyp of colon; K62.1 Rectal polyp; K57.30 Diverticulosis of large intestine without perforation or abscess without bleeding | CPT/HCPCS: 45380; 45381; 45385 ==

== ENCOUNTER 2024-03-16 08:05 | Outpatient (AMB) | payer OTHER, SELFPAY ==
[2024-03-16 08:06] VITALS: BP 130/74; PULSE 75; TEMP 36.6; O2SAT 97; BMI 28.1
--- NOTE | 2024-03-16 08:06 | MHC.OFFWIV ---
Intake Vital Signs 03/16/24 08:06 Height 5 ft 10 in Weight 196 lb BMI 28.1 BP 130/74 Blood Pressure Location Rt brachial Position Sitting Pulse 75 Pulse Source Pulse Oximeter Temp 97.9 F Temp Source Oral Pulse Oximetry (%) 97 Oxygen Delivery Method Room Air Intake Visit Reasons: EP ?Yeast infection Intake Note: pt is here for possible yeast infection Patient Tobacco Use Status: Current everyday Tobacco user Allergies cats, dogs, pollen Allergy (Unknown, Verified 03/16/24 08:06) unknown Medication List - Last Reconciled 03/16/24 by Chanell Gamboa NP blood sugar diagnostic (FreeStyle Lite Strips) test blood sugar twice per day blood-glucose meter (FreeStyle Lite Meter kit) As directed blood-glucose sensor ([employer] G7 Sensor device) As directed bupropion HCl XL 300 mg PO QAM empagliflozin (Jardiance) 25 mg PO DAILY epinephrine (EpiPen 2-Alfred) 0.3 mg (0.3 mL) IM Q4H PRN flash glucose sensor (FreeStyle Bishop 14 Day Sensor kit) As directed fluconazole 150 mg orally Repeat after 1 week if symptoms persist; 2 doses ibuprofen 800 mg PO Q8H lancets (FreeStyle Lancets) As directed metformin 1,000 mg (2 x 500 mg) PO BID Ozempic (semaglutide) 2 mg (0.75 mL) subcut QWEEK NS ProAir HFA 90 mcg/actuation (albuterol sulfate) 2 puffs inhalation Q4-6H PRN NS Do you need a note to return to daycare/school/sports/work: No HPI EP ?Yeast infection HPI Details 48-year-old female presents with concerns for yeast infection. She notes that she is perimenopausal, and has had yeast infections nearly monthly for the past several months. Typically her primary care would prescribe for her fluconazole, however given the frequency of infections she just follow her drier transfer car operator. Gynecology prescribed vaginal estrogen, however she is yet to start that as she did not understand how this would help her with yeast infections. She has had vaginal irritation, itch, and thick discharge for the past week. She has not tried anything to treat it [id number]. She also notes similar feelings of irritation in her throat. She notes that her now has balanitis, and she has performed oral intercourse since symptoms onset, leading her to believe that she may have early yeast in her throat. She notes no lesions in her throat, and does not have overall pain. No difficulty swallowing, chewing, or tolerating p.o. food or fluids. She also notes that she is diabetic, and her primary care has discussed potentially adding insulin to her regimen due to lack of control. [facility] Medical History (Updated 01/07/24 @ 15:20 by Kassandra Ruiz MD) Smoker FHx: colon cancer Night sweats Annual physical exam Tobacco dependence Urinary incontinence TMJ syndrome Type 2 diabetes mellitus Mild intermittent asthma Anxiety Depression Surgical History No pertinent past surgical history Family History Maternal Grandmother Ovarian cancer Mother No problems noted. Father No problems noted. Social History Household Members Other:: single, tobacco 1 ppd, no children, mother moving to [place] Housing: Apartment Patient Tobacco Use Status: Current everyday Tobacco user Tobacco use type: Cigarette Cigarette Packs Per Day: 1 Cigarettes Per Day: 20.0 Years Smoked: 30 e-Cigarette/Vaping Use: Never Used Current occupational status: employed Cognitive needs: No Hearing needs: No Vision needs: Yes Review of Systems Const All systems reviewed & are unremarkable except as noted in HPI and below Physical Exam Vital Signs: Last Vital Signs Temp 97.9 F 03/16/24 08:06 Pulse 75 03/16/24 08:06 BP 130/74 03/16/24 08:06 Pulse Ox 97 03/16/24 08:06 Oxygen Delivery Method Room Air 03/16/24 08:06 BMI result Body Mass Index 28.1 Const General: cooperative, healthy appearing, comfortable, alert and awake Nutritional Appearance: average body habitus Orientation/consciousness: patient oriented x3 Limitations: no limitations HEENT Head: Yes normal to inspection and Yes normocephalic Mouth: Normal oral and palatal mucosa present and tongue normal Throat: Yes posterior oropharynx normal and Yes tonsils normal General: Yes deferred (Patient declined examination) Neuro General: patient oriented x3 Assessment & Plan Assessment & Plan (1) Vaginitis: Code(s): N76.0 - Acute vaginitis Qualifiers: Chronicity: acute Qualified Code(s): N76.0 - Acute vaginitis Plan: Patient performs self swabbed for vaginitis. Given both oral and vaginal symptoms, treated with oral fluconazole, with repeat x1 after 7 days if symptoms persist. Advised starting vaginal estrogen as planned by drier transfer car operator, reviewed preventative factors associated with use of vaginal estrogen in perimenopausal female. Advised avoidance of intercourse until symptoms have completely resolved, to avoid further spread of infection between herself and her partner. Reviewed potential the ongoing infrequent history sections may be multifactorial including worsening diabetes as well as perimenopausal contributions which would be better followed with plans long-term PCP and gynecological follow-ups. Plan See above Orders: Orders Bacterial Vaginosis Panel Today N76.0 - Acute vaginitis Medications: New fluconazole 150 mg orally Repeat after 1 week if symptoms persist; 2 tabs 0RF Coding Level of Care Code Est Pt Level 4 (18919) Diagnoses Acute vaginitis N76.0 Chronicity: acute Time Spent (min) 25
== END 2024-03-16 10:49 | disposition home or self-care (01) ==
PROVIDERS: PCP Internal Medicine; Visit Provider Registered Nurse
DX: N76.0 Acute vaginitis (principal)
CPT/HCPCS: 99213

== ENCOUNTER 2024-03-16 12:30 | Outpatient (REF) | payer OTHER, SELFPAY ==
[2024-03-16 14:54] LABS: Bacterial Vaginosis PCR NEGATIVE (Negative); Candida Group PCR DETECTED (Not Detect); Candida glab krusei PCR NOT DETECTED (Not Detect); Trichomonas vaginalis PCR NOT DETECTED (Not Detect)
== END 2024-03-16 12:31 | disposition home or self-care (01) ==
LOC: HO.LNP 12:30
PROVIDERS: Visit Provider Registered Nurse
DX: N76.0 Acute vaginitis (principal)
CPT/HCPCS: 0352U

== ENCOUNTER 2024-04-22 11:34 | Outpatient (AMB) | payer OTHER, SELFPAY ==
[2024-04-22 11:42] VITALS: BP 108/64; PULSE 89; O2SAT 100; BMI 27.7
--- NOTE | 2024-04-22 11:42 | A.OFFPC_ITS ---
Vital Signs 04/22/24 11:42 Height 5 ft 10 in Weight 193 lb BMI 27.7 BP 108/64 Blood Pressure Location Rt brachial Position Sitting Pulse 89 Pulse Source Pulse Oximeter Pulse Oximetry (%) 100 Oxygen Delivery Method Room Air Intake Visit Reasons: Infection Intake Note: Pt is here today for a sikc visit. Pt c/o recurring yeast infections and mouth thrush. Pt states that it has been going on since January. Allergies cats, dogs, pollen Allergy (Unknown, Verified 04/22/24 11:45) unknown Tobacco use date assessed: 04/22/24 Dental Screening Dental Screen Date: 01/07/24 HPI Infection HPI Details Patient presents complaining of having recurrent oral candidiasis and vaginal yeast infection for the last month. She stopped taking her medications for diabetes a few months ago and has not been compliant with ADA diet or monitoring her blood glucose level. Patient denies polyuria polydipsia PFSH Medical History Smoker FHx: colon cancer Night sweats Annual physical exam Tobacco dependence Urinary incontinence TMJ syndrome Type 2 diabetes mellitus Mild intermittent asthma Anxiety Depression Surgical History No pertinent past surgical history Family History Maternal Grandmother Ovarian cancer Mother No problems noted. Father No problems noted. Social History Household Members Other:: single, tobacco 1 ppd, no children, mother moving to [place] Housing: Apartment Patient Tobacco Use Status: Current everyday Tobacco user Tobacco use type: Cigarette Cigarette Packs Per Day: 1 Cigarettes Per Day: 20.0 Years Smoked: 30 e-Cigarette/Vaping Use: Never Used service: No Current occupational status: employed Cognitive needs: No Hearing needs: No Vision needs: Yes Questionnaire PHQ-9 Over the last 2 weeks, how often have you been bothered by any of the following problems? 1. Little interest or pleasure in doing things: not at all 2. Feeling down, depressed, or hopeless: not at all 3. Trouble falling or staying asleep, or sleeping too much: more than half the days 4. Feeling tired or having little energy: not at all 5. Poor appetite or overeating: not at all 6. Feeling bad about yourself - or that you are a failure or have let yourself or your family down: not at all 7. Trouble concentrating on things, such as reading the newspaper or watching television: not at all 8. Moving or speaking so slowly that other people could have noticed. Or the opposite - being so fidgety or restless that you have been moving around a lot more than usual: not at all 9. Thoughts that you would be better off or of hurting yourself in some way: not at all Total score: 2 Depression Screening Interpretation: Negative Depression Screening Done: Yes Source: Developed by Drs. Darien Cottrell, Ely Freeman, Jason Weller and colleagues, with an educational christine from [employer]. Thrive Questionnaire Date Thrive assessed: 04/22/24 I am a: Patient What is your living situation today?: I have a steady place to live Within the past 12 months, did the food you bought not last and you didn't have the money to get more?: Never true Within the past 12 months, did you worry whether your food would run out before you got money to buy more?: Never true Do you have trouble paying for medicines?: No Do you have trouble getting transportation to medical appointments?: No Do you have trouble paying your heating and electricity bill?: No Do you have trouble taking care of your child, family member or friend?: No Do you have trouble with day-to-day activities such as bathing, preparing meals, shopping, managing finances, etc.?: No Are you currently unemployed and looking for a job?: Yes Are you interested in more education?: No Please select the resources that you would like help with: Housing/[facility] Currently or been in a relationship where the following occur: No concerns reported THRIVE Score: 0 AUDIT C Alcohol Use Questionnaire (AUDIT-C) 1. How often do you have a drink containing alcohol?: Never 3. How often do you have six or more drinks on one occasion?: Never Total Score: 0 NOEMY-7 AMB Questionnaire NOEMY-7 Date NOEMY - 7 assessed: 04/22/24 Feeling nervous, anxious, or on edge: 2 = More than half the days Not being able to stop or control worryin = Not at all Worrying too much about different things: 0 = Not at all Trouble relaxin = Not at all Being so restless that it is hard to sit still: 0 = Not at all Becoming easily annoyed or irritable: 0 = Not at all Feeling afraid as if something awful might happen: 0 = Not at all Total NOEMY-7 score (0-4 normal; 5-9 mild; 10-14 moderate; 15-21 severe): 2 Source: Developed by Drs. Darien Cottrell, Ely Freeman, Jason Weller and colleagues, with an educational christine from [employer]. Review of Systems Const All systems reviewed & are unremarkable except as noted in HPI and below Reports no additional complaints Eyes Reports no additional complaints ENT Reports no additional complaints Card Reports no additional complaints Resp Reports no additional complaints GI Reports no additional complaints Reports no additional complaints Physical exam (Primary Care) Vital Signs: Last Vital Signs Pulse 89 04/22/24 11:42 BP 108/64 04/22/24 11:42 Pulse Ox 100 04/22/24 11:42 Oxygen Delivery Method Room Air 04/22/24 11:42 BMI result Body Mass Index 27.7 Tobacco/Smoking Status: Tobacco use Status Tobacco use date assessed 04/22/24 04/22/24 11:48 Patient Tobacco Use Status Current everyday Tobacco 04/22/24 11:48 Tobacco use type Cigarette 04/22/24 11:48 e-Cigarette/Vaping Use Never Used 04/22/24 11:48 PHQ-9: PHQ-9 Score PHQ-9: Total score 2 04/22/24 13:34 Depression Screening Interpretation: Negative Thrive Assessment: Date of Thrive Assessment Date Thrive assessed 04/22/24 04/22/24 11:48 Currently or been in a relationship where the following occur: No concerns reported Const General: no acute distress HENMT Head: Yes normal to inspection Face and sinus: Yes normal facial exam Mouth: Normal oral and palatal mucosa present Throat: Yes posterior oropharynx normal Eyes General: appearance normal, both eyes and all related structures Neck Neck: Yes supple Resp Effort & Inspection: normal respiratory effort Auscultation: clear to auscultation bilaterally Cardio Rhythm: regular rhythm Heart sounds: S1 normal heart sound present and S2 normal heart sound present GI Inspection: Yes normal to inspection Palpation (GI): Soft to palpation Percussion: Yes normal to percussion Auscultation: normal bowel sounds Assessment and Plan Assessment & Plan (1) Type 2 diabetes mellitus: Code(s): E11.9 - Type 2 diabetes mellitus without complications Plan: Patient was advised to restart her regular medications ,start monitoring her fasting blood glucose ADA diet increase physical activity discussed with the patient. She will f/u in 2 months with a fasting labs Orders: Orders Hemoglobin A1c 2 Months E11.9 - Type 2 diabetes mellitus without complications Complete Blood Count Auto Diff 2 Months E11.9 - Type 2 diabetes mellitus without complications Microalbumin, Random (w Creat) 2 Months E11.9 - Type 2 diabetes mellitus without complications TSH reflex Free T4 2 Months E11.9 - Type 2 diabetes mellitus without complications Comprehensive [place]. Panel Fast 2 Months E11.9 - Type 2 diabetes mellitus without complications Lipid Panel 2 Months E11.9 - Type 2 diabetes mellitus without complications Medications: New valacyclovir (Valtrex) 1,000 mg PO TID 21 tabs 0RF valacyclovir (Valtrex) 1,000 mg PO TID 21 tabs 0RF Coding Level of Care Code Est Pt Level 3 (02276) Diagnoses Type 2 diabetes mellitus E11.9
== END 2024-04-22 12:34 | disposition home or self-care (01) ==
PROVIDERS: PCP Internal Medicine; Visit Provider Internal Medicine
DX: E11.9 Type 2 diabetes mellitus without complications (principal)
CPT/HCPCS: 99213

== ENCOUNTER 2024-05-31 12:53 | Outpatient (REF) | payer OTHER, SELFPAY | END 2024-05-31 12:54 | disposition home or self-care (01) | LOC: HO.LAB 12:53 | PROVIDERS: PCP Internal Medicine; Visit Provider Internal Medicine | DX: M54.50 Low back pain, unspecified (principal); F17.210 Nicotine dependence, cigarettes, uncomplicated | CPT/HCPCS: 81003; 87086; 87088; 87186; 99212 ==

== ENCOUNTER 2024-05-31 12:53 | Outpatient (AMB) | payer OTHER, SELFPAY ==
[2024-05-31 13:13] VITALS: BP 112/76; PULSE 83; TEMP 36.7; O2SAT 98; BMI 28.0
--- NOTE | 2024-05-31 13:13 | MHC.OFFWIV ---
Intake Vital Signs 05/31/24 13:13 Height 5 ft 10 in Weight 195 lb BMI 28.0 BP 112/76 Blood Pressure Location Lt brachial Position Sitting Pulse 83 Pulse Source Pulse Oximeter Temp 98.0 F Temp Source Oral Pulse Oximetry (%) 98 Oxygen Delivery Method Room Air Intake Visit Reasons: EP UTI? Back/kidney pain Intake Note: pt c/o lower RT back/kidney pain. Urinary urgency ? UTI. Started Patient Tobacco Use Status: Current everyday Tobacco user Allergies cats, dogs, pollen Allergy (Unknown, Verified 05/31/24 13:23) unknown Do you need a note to return to daycare/school/sports/work: No HPI HPI Comments History of Present Illness Details Patient is a 48-year-old female complaining 4 days of right-sided low back pain that radiates around her side. She states she feels like when she is urinating that something needs to come out but she is not passing anything. She states that she has no burning with urination but feels like she has the urgency to pee more than normal but then nothing comes out. She denies any fevers or blood in her urine. She states she does not have a menstrual cycle, she just got her Depo shot. She denies a history of kidney stones [facility] Medical History Smoker FHx: colon cancer Night sweats Annual physical exam Tobacco dependence Urinary incontinence TMJ syndrome Type 2 diabetes mellitus Mild intermittent asthma Anxiety Depression Surgical History No pertinent past surgical history Family History Maternal Grandmother Ovarian cancer Mother No problems noted. Father No problems noted. Social History Household Members Other:: single, tobacco 1 ppd, no children, mother moving to [place] Housing: Apartment Patient Tobacco Use Status: Current everyday Tobacco user Tobacco use type: Cigarette Cigarette Packs Per Day: 1 Cigarettes Per Day: 20.0 Years Smoked: 30 e-Cigarette/Vaping Use: Never Used service: No Current occupational status: employed Cognitive needs: No Hearing needs: No Vision needs: Yes Review of Systems Const All systems reviewed & are unremarkable except as noted in HPI and below Physical Exam Vital Signs: Last Vital Signs Temp 98.0 F 05/31/24 13:13 Pulse 83 05/31/24 13:13 BP 112/76 05/31/24 13:13 Pulse Ox 98 05/31/24 13:13 Oxygen Delivery Method Room Air 05/31/24 13:13 BMI result Body Mass Index 28.0 Const General: cooperative, healthy appearing and comfortable Orientation/consciousness: patient oriented x3 HEENT Head: Yes normal to inspection and Yes normocephalic General nose exam: Normal external nose present Face and sinus: Yes normal facial exam Eyes General: appearance normal, both eyes and all related structures Resp Effort & Inspection: normal respiratory effort and able to speak in complete sentences General: Yes CVA tenderness on the right Back/Spine/Pelvis Back: CVA tenderness Neuro General: patient oriented x3 Extrem Other: Straight leg raise test negative on right; Straight leg raise test negative on left; Reflexes normal ankle and knee bilaterally; motor strength normal bilaterally Results AMB Urinalysis, Automated UA Leukoctes 15 Fredi/uL Last Edit by Ryland Chawla CMA on 05/31/24 13:27 UA Nitrite Negative Last Edit by Ryland Chawla CMA on 05/31/24 13:27 UA Urobilinogen 0.2 mg/dL Last Edit by Ryland Chawla CMA on 05/31/24 13:27 UA Protein 30 mg/dL Last Edit by Ryland Chawla CMA on 05/31/24 13:27 UA pH 6.0 Last Edit by Ryland Chawla CMA on 05/31/24 13:27 UA Blood 200 Toi/uL Last Edit by Ryland Chawla CMA on 05/31/24 13:27 UA Specific Bishop 1.010 Last Edit by Ryland Chawla CMA on 05/31/24 13:27 UA Ketone Positive Last Edit by Ryland Chawla CMA on 05/31/24 13:27 UA Bilirubin 0 mg/dL Last Edit by Ryland Chawla CMA on 05/31/24 13:27 UA Glucose 1000 mg/dL Last Edit by Ryland Chawla CMA on 05/31/24 13:27 Results Reviewed Results Reviewed: Laboratory Last Values Urine pH (Auto) 6.0 05/31/24 13:25 Specific Bishop (Auto) 1.010 05/31/24 13:25 Urine Protein (Auto) 30 mg/dL 05/31/24 13:25 Glucose (UA)(Auto) 1000 mg/dL 05/31/24 13:25 Urine Ketones (Auto) Positive 05/31/24 13:25 Urine Blood (Auto) 200 Toi/uL 05/31/24 13:25 Urine Nitrite (Auto) Negative 05/31/24 13:25 Urine Bilirubin (Auto) 0 mg/dL 05/31/24 13:25 Urine Urobilinogen (Auto) 0.2 mg/dL 05/31/24 13:25 Leukocyte Esterase (Auto) 15 Fredi/uL 05/31/24 13:25 Assessment & Plan Assessment & Plan (1) Low back pain: Code(s): M54.50 - Low back pain, unspecified Qualifiers: Back pain laterality: right Chronicity: acute Sciatica presence: without sciatica Qualified Code(s): M54.50 - Low back pain, unspecified Plan: Vital signs are stable and patient is well-appearing. She had significant right-sided CVA tenderness, so this is likely a stone. Educated patient on the need to go to the emergency department to have a full workup to make sure there is no hydronephrosis and to verify there are stones and to assess the size and treatment. Patient understands and will be driving to her boyfriend's house in [place] and have him go with her to the emergency room in that area. Very unlikely she has an infection but I will send for a culture. I did not send any antibiotics so if she is positive, we will need to treat her at that point. Plan see above Orders: Orders Urine Culture 05/31/24 Naina Fuentes PA-C M54.50 - Low back pain, unspecified AMB Urinalysis Automated 05/31/24 Chanell Gamboa NP Z13.9 - Encounter for screening, unspecified Coding Level of Care Code Est Pt Level 5 (35363) Diagnoses Acute right-sided low back pain without sciatica M54.50 Back pain laterality: right Chronicity: acute Sciatica presence: without sciatica
== END 2024-05-31 13:53 | disposition home or self-care (01) ==
PROVIDERS: PCP Internal Medicine; Visit Provider Physician Assistant
DX: M54.50 Low back pain, unspecified (principal)

== ENCOUNTER 2024-06-23 12:49 | Outpatient (REF) | payer OTHER, SELFPAY ==
[2024-06-24 11:02] LABS: Bacterial Vaginosis PCR NEGATIVE (Negative); Candida Group PCR DETECTED (Not Detect); Candida glab krusei PCR NOT DETECTED (Not Detect); Trichomonas vaginalis PCR NOT DETECTED (Not Detect)
== END 2024-06-23 12:50 | disposition home or self-care (01) ==
LOC: HO.LAB 12:49
PROVIDERS: PCP Internal Medicine; Visit Provider Internal Medicine
DX: E11.9 Type 2 diabetes mellitus without complications (principal); F41.9 Anxiety disorder, unspecified; N76.0 Acute vaginitis; F17.210 Nicotine dependence, cigarettes, uncomplicated; Z79.84 Long term (current) use of oral hypoglycemic drugs
CPT/HCPCS: 0352U; 83036; 99212

== ENCOUNTER 2024-06-23 12:49 | Outpatient (AMB) | payer OTHER, SELFPAY ==
[2024-06-23 12:50] VITALS: BP 104/60; PULSE 90; O2SAT 97; BMI 28.1
--- NOTE | 2024-06-23 12:50 | A.OFFPC_ITS ---
Vital Signs 06/23/24 12:50 Height 5 ft 10 in Weight 196 lb BMI 28.1 BP 104/60 Blood Pressure Location Lt brachial Position Sitting Pulse 90 Pulse Source Pulse Oximeter Pulse Oximetry (%) 97 Oxygen Delivery Method Room Air Intake Visit Reasons: 2 Mo Follow Up Intake Note: Pt is here today for 2 months follow up visit. Allergies cats, dogs, pollen Allergy (Unknown, Verified 06/23/24 12:53) unknown Medication List - Last Reconciled 06/23/24 by Kassandra Ruiz MD blood sugar diagnostic (FreeStyle Lite Strips) test blood sugar twice per day blood-glucose meter (FreeStyle Lite Meter kit) As directed blood-glucose sensor (Dexcom G7 Sensor device) As directed bupropion HCl XL 300 mg PO QAM empagliflozin (Jardiance) 25 mg PO DAILY epinephrine (EpiPen 2-Alfred) 0.3 mg (0.3 mL) IM Q4H PRN flash glucose sensor (FreeStyle Bishop 14 Day Sensor kit) As directed fluconazole 150 mg orally Repeat after 1 week if symptoms persist; 2 doses ibuprofen 800 mg PO Q8H lancets (FreeStyle Lancets) As directed metformin 1,000 mg (2 x 500 mg) PO BID Ozempic (semaglutide) 2 mg (0.75 mL) subcut QWEEK NS ProAir HFA 90 mcg/actuation (albuterol sulfate) 2 puffs inhalation Q4-6H PRN NS Tobacco use date assessed: 06/23/24 Dental Screening Dental Screen Date: 01/07/24 HPI 2 Mo Follow Up HPI Details Patient presents for the follow-up of type 2 diabetes. She has been monitor her glucose regularly because of Dexcom and modifying her diet. Patient has stopped taking Ozempic because of constipation but it is willing to restart. She reports high blood glucose readings in early mornings about 200s. She has been taking metformin and Jardiance regularly. Patient denies polyuria polydipsia PFSH Medical History Smoker FHx: colon cancer Night sweats Annual physical exam Tobacco dependence Urinary incontinence TMJ syndrome Type 2 diabetes mellitus Mild intermittent asthma Anxiety Depression Surgical History No pertinent past surgical history Family History Maternal Grandmother Ovarian cancer Mother No problems noted. Father No problems noted. Social History Household Members Other:: single, tobacco 1 ppd, no children, mother moving to [place] Housing: Apartment Patient Tobacco Use Status: Current everyday Tobacco user Tobacco use type: Cigarette Cigarette Packs Per Day: 1 Cigarettes Per Day: 20.0 Years Smoked: 30 e-Cigarette/Vaping Use: Never Used service: No Current occupational status: employed Cognitive needs: No Hearing needs: No Vision needs: Yes Questionnaire Thrive Questionnaire Date Thrive assessed: 04/22/24 NOEMY-7 AMB Questionnaire NOEMY-7 Date NOEMY - 7 assessed: 04/22/24 Source: Developed by Drs. Darien Cottrell, Ely Freeman, Jason Weller and colleagues, with an educational christine from [employer]. Review of Systems Const All systems reviewed & are unremarkable except as noted in HPI and below ENT Reports no additional complaints Card Reports no additional complaints Resp Reports no additional complaints GI Reports no additional complaints Reports no additional complaints Physical exam (Primary Care) Vital Signs: Last Vital Signs Pulse 90 06/23/24 12:50 BP 104/60 06/23/24 12:50 Pulse Ox 97 06/23/24 12:50 Oxygen Delivery Method Room Air 06/23/24 12:50 BMI result Body Mass Index 28.1 Tobacco/Smoking Status: Tobacco use Status Tobacco use date assessed 06/23/24 06/23/24 12:56 Patient Tobacco Use Status Current everyday Tobacco 06/23/24 12:51 Tobacco use type Cigarette 06/23/24 12:51 e-Cigarette/Vaping Use Never Used 06/23/24 12:51 Thrive Assessment: Date of Thrive Assessment Date Thrive assessed 04/22/24 06/23/24 12:51 Const General: no acute distress Resp Effort & Inspection: normal respiratory effort Auscultation: clear to auscultation bilaterally Cardio Rhythm: regular rhythm Heart sounds: S1 normal heart sound present and S2 normal heart sound present GI Inspection: Yes normal to inspection Palpation (GI): Soft to palpation Percussion: Yes normal to percussion Auscultation: normal bowel sounds Results AMB Hemoglobin A1c AMB Hemoglobin A1c 10.2 % Last Edit by JEANNIE Carrion on 06/23/24 13: 39 Results Reviewed Results Reviewed: Laboratory Last Values Hgb A1c (Clinic) 10.2 % (4.0-6.0) H 06/23/24 13:34 Coding Level of Care Code Est Pt Level 4 (62773) Diagnoses Type 2 diabetes mellitus E11.9 Tobacco dependence F17.200 Anxiety F41.9 Assessment & Plan Assessment & Plan (1) Type 2 diabetes mellitus: Code(s): E11.9 - Type 2 diabetes mellitus without complications Category: Medical Plan: A1c is 10.2, ADA diet increase exercise discussed with the patient. She will try slow release metformin 2000 mg at night and restart Ozempic. If patient develops side effects Mounjaro will be tried instead. She refused to use insulin. Follow-up in 3 months with a fasting labs before (2) Tobacco dependence: Comment: 1/2 PPD x 15 yrs Code(s): F17.200 - Nicotine dependence, unspecified, uncomplicated Category: Medical Plan: Tobacco quitting discussed with the patient (3) Anxiety: Comment: Patient will follow-up with psychiatric prescriber and counselor Code(s): F41.9 - Anxiety disorder, unspecified Category: Medical Plan: Stable on bupropion Orders: Orders Comprehensive [place]. Panel Fast 3 Months E11.9 - Type 2 diabetes mellitus without complications, F17.200 - Nicotine dependence, unspecified, uncomplicated Lipid Panel 3 Months E11.9 - Type 2 diabetes mellitus without complications, F17.200 - Nicotine dependence, unspecified, uncomplicated Hemoglobin A1c 3 Months E11.9 - Type 2 diabetes mellitus without complications, F17.200 - Nicotine dependence, unspecified, uncomplicated Microalbumin, Random (w Creat) 3 Months E11.9 - Type 2 diabetes mellitus without complications, F17.200 - Nicotine dependence, unspecified, uncomplicated AMB Hemoglobin A1c Today Z13.9 - Encounter for screening, unspecified Complete Blood Count Auto Diff 3 Months E11.9 - Type 2 diabetes mellitus without complications, F17.200 - Nicotine dependence, unspecified, uncomplicated Medications: New metformin ER 4 tabl qhs 500 mg PO DAILY 360 tabs 3RF Discontinued metformin Discontinued Reason: Doctor's Order 1,000 mg (2 x 500 mg) PO BID 360 tabs 1RF
== END 2024-06-23 13:52 | disposition home or self-care (01) ==
PROVIDERS: PCP Internal Medicine; Visit Provider Internal Medicine
DX: E11.9 Type 2 diabetes mellitus without complications (principal); F17.200 Nicotine dependence, unspecified, uncomplicated; F41.9 Anxiety disorder, unspecified; Z13.9 Encounter for screening, unspecified

== ENCOUNTER → 2024-12-15 12:48 | Outpatient (BNVA) | payer SELFPAY | PROVIDERS: PCP Internal Medicine; Visit Provider Physician Assistant Medical | DX: Z02.79 Encounter for issue of other medical certificate (principal) ==

== ENCOUNTER 2025-03-22 12:24 | Outpatient (REF) | payer OTHER, SELFPAY ==
--- NOTE | ~2025-03-22 | MM_ITS ---
EXAMINATION: MM SCREENING DIGITAL BREAST TOMOSYNTHESIS, BILATERAL CLINICAL INFORMATION: Screening. Asymptomatic. COMPARISON: Comparison made to multiple prior, most recent March 02, 2024, and most remote January 23, 2021. TECHNIQUE: Digital breast tomosynthesis is performed in both the craniocaudal and mediolateral oblique views along with computer-aided detection (CAD). Synthesized 2D images are generated from the tomosynthesis. FINDINGS: BREAST COMPOSITION: There are scattered areas of fibroglandular density (ACR BI-RADS breast composition Category b). BILATERAL BREASTS: No significant masses, suspicious calcifications or other abnormalities are seen in either breast. MM/MM tomosynthesis screening BI IMPRESSION: BILATERAL BREASTS: Negative, no mammographic evidence of malignancy. Normal interval follow-up is recommended in 12 months. ASSESSMENT: BI-RADS 1 - Negative RECOMMENDATION: Routine annual mammography screening. FOLLOW-UP: 1 year F/U This examination should not preclude the clinical evaluation of a suspicious palpable abnormality. This patient's information was entered into a reminder system with a target due date for their next mammogram. Electronically signed by: Leona Gotti MD 04/04/2025 07:12 PM EDT
== END 2025-03-22 12:25 | disposition home or self-care (01) ==
LOC: HO.MAMMO 12:24
PROVIDERS: Visit Provider Internal Medicine
DX: Z12.31 Encounter for screening mammogram for malignant neoplasm of breast (principal)
CPT/HCPCS: 77063; 77067

== ENCOUNTER → 2025-03-22 12:30 | Outpatient (BNV) | payer OTHER, SELFPAY | PROVIDERS: Visit Provider Radiology Body Imaging | DX: Z12.31 Encounter for screening mammogram for malignant neoplasm of breast (principal) | CPT/HCPCS: 77063; 77067 ==